=== PATIENT | female | born 1955 | race African-American/Black ===

== ENCOUNTER 2017-10-29 14:57 | Emergency (ER) | payer OTHER ==
[~2017-10-29] VITALS: Ht 165.1 cm; Wt 51.2 kg
[~2017-10-29 14:57] MED LIST: ATARAX,VISTARIL25 MG PO; DESYREL100 MG PO; KEFLEX500 MG PO; KLONOPIN0.5 M1 PO; LISINOPRIL20 MG PO; LISINOPRIL5 MG PO; NOHOMEMEDS; QUETIAPINE FUM300 MG PO
[2017-10-29 15:44] LABS: HEMATOCRIT 42.2 % (36.0-46.0); HEMOGLOBIN 13.9 G/DL (11.9-15.5); MCH 29.8 PG (29.0-34.0); MCHC 32.9 G/DL (30.0-36.0); MCV 90.4 FL (83-99); PLATELET COUNT 294 K/uL (156-360); RBC DIS.WIDTH-CV 14.3 % (11.8-14.6); RBC DIS.WIDTH-SD 47.4 % (39-53); RED BLOOD COUNT 4.67 M/uL (3.80-5.20)
[2017-10-29 15:53] LABS: CHLORIDE 100 mEq/L (99-109); SODIUM 133 mEq/L (136-147)
[2017-10-29 15:54] LABS: GLUCOSE 123 mg/dL (70-99)
[2017-10-29 15:58] LABS: CREATININE 0.8 mg/dL (0.6-1.3); GFR ESTIMATE (CALCULATED) > 59 mL/min/
[2017-10-29 15:59] LABS: UREA NITROGEN (BUN) 13 mg/dL (9-23)
[2017-10-29 16:03] LABS: TROP-I INTERPRETATION NEGATIVE; TROPONIN-I 0.01 ng/mL (0.0-0.30)
[2017-10-29] MEDS ORDERED: AZITHROMYCIN250 MG PO (17:22)
[2017-10-29] MEDS ORDERED: SEROQUEL300 MG PO (17:22)
[2017-10-29 17:33] VITALS: BP 162/92
== END 2017-10-29 17:48 | disposition home or self-care (01) ==
LOC: EME 14:57
PROVIDERS: Nurse Practitioner Family
DX: J18.9 Pneumonia, unspecified organism (principal); Z76.0 Encounter for issue of repeat prescription; Z90.2 Acquired absence of lung [part of]; F17.200 Nicotine dependence, unspecified, uncomplicated; I10 Essential (primary) hypertension; J90 Pleural effusion, not elsewhere classified; Z88.5 Allergy status to narcotic agent
CPT/HCPCS: 71046; 80048; 84484; 85027; 87502; 93005; 99281; 99284

== ENCOUNTER 2018-02-04 15:03 | Emergency (ER) | payer OTHER ==
[~2018-02-04] VITALS: Ht 170.2 cm; Wt 47.5 kg
[~2018-02-04 15:03] MED LIST changes: +AZITHROMYCIN250 MG PO; +SEROQUEL300 MG PO
[2018-02-04 15:49] LABS: BASOPHIL (%) 0.4 % (0-1); EOSINOPHIL (%) 0.8 % (0-5); EOSINOPHIL COUNT 0.1 K/uL (0-0.3); HEMATOCRIT 37.5 % (36.0-46.0); HEMOGLOBIN 12.4 G/DL (11.9-15.5); IMMATURE GRANULOCYTE (%) 0.3 % (0.0-0.7); LYMPHOCYTE COUNT 2.8 K/uL (1.0-2.8); MCH 30.1 PG (29.0-34.0); MCHC 33.1 G/DL (30.0-36.0); MONOCYTE (%) 5.4 % (3-12); MONOCYTE COUNT 0.5 K/uL (0-0.8); NEUTROPHIL (%) 62.1 % (45-76); NEUTROPHIL COUNT 5.6 K/uL (1.8-6.4); PLATELET COUNT 235 K/uL (156-360); RBC DIS.WIDTH-CV 13.1 % (11.8-14.6); RBC DIS.WIDTH-SD 43.8 % (39-53); RED BLOOD COUNT 4.12 M/uL (3.80-5.20)
[2018-02-04 16:00] LABS: CHLORIDE 103 mEq/L (99-109); POTASSIUM 4.1 mEq/L (3.7-5.4); SODIUM 135 mEq/L (136-147)
[2018-02-04 16:02] LABS: GLUCOSE 111 mg/dL (70-99)
[2018-02-04 16:05] LABS: CREATININE 1.2 mg/dL (0.6-1.3); GFR ESTIMATE (CALCULATED) 59 mL/min/
[2018-02-04 16:06] LABS: UREA NITROGEN (BUN) 32 mg/dL (9-23)
[2018-02-04 16:11] LABS: TROP-I INTERPRETATION NEGATIVE; TROPONIN-I < 0.01 ng/mL (0.0-0.30)
[2018-02-04] MEDS ORDERED: VENTOLIN HFA18 GM IH (17:15)
[2018-02-04] MEDS ORDERED: AZITHROMYCIN500 M1 PO (17:15)
[2018-02-04] MEDS ORDERED: AUGMENTIN875 MG PO (17:15)
[2018-02-04 17:30] VITALS: BP 143/87
== END 2018-02-04 17:52 | disposition home or self-care (01) ==
LOC: EME 15:03
PROVIDERS: Emergency Medicine
DX: R06.02 Shortness of breath (principal); R05 Cough; F17.210 Nicotine dependence, cigarettes, uncomplicated; I10 Essential (primary) hypertension
CPT/HCPCS: 71046; 80048; 83880; 84484; 85025; 93005; 99281; 99285